=== PATIENT | male | born 1955 | race Caucasian/White ===

== ENCOUNTER → 2016-09-12 | Outpatient (CLI) | payer OTHER ==
[~2016-09-12] MED LIST: ADVAIR 5001 DISK W/D; ALBUTEROL17 GM; AMIODARONE; CARDIZEM CD; COMBIVENT INH14.7 GM; DILANTIN-1100 MG/4 M; IBUPROFEN PO; IMDUR; LASIX; NASONEX17 GM; VICODIN 5/500 T1 TAB PO; [UNRECOGNIZED DRUG - REMARK]
--- NOTE | ~2016-09-12 | CR181 ---
[facility] A Service of [facility] RADIOLOGY TEXT RESULTS PATIENT: VENESSA LIVINGSTON LOCATION: [facility] : 53 UNIT #: [id number] AGE: [address]: Wendi Young APRN SEX: M ORDER DR: [id number] [facility] [address] [place], [place] [address] [id number] O MR#: [id number] Acc #: [id number] NAME: VENESSA LIVINGSTON. : 1955 SEX: M STUDY DATE/TIME: 09/12/2016 18:33 UNIT: [facility] ROOM: STUDY DESCRIPTION: CR Lumbar Spine 2 or 3 Views Attending Physician: Wendi Young Aprn Referring Physician: Wendi Young Aprn Ordering Physician: Wendi Young Aprn Primary Care Physician: No Primary Care Physician MEDICAL IMAGING REPORT This report is preliminary unless electronic signature is present EXAM Lumbar spine, 3 views. INDICATIONS Low back pain for 20 years. COMPARISON Comparison is made with CT of the abdomen and pelvis from 04/30/2015. FINDINGS Vertebral body heights and alignment and disc spaces are maintained. On flexion/extension views, there is no evidence for dynamic instability. There is mild facet arthropathy of the lower lumbar spine. Vascular calcifications with stable ectasia of the infrarenal abdominal aorta. IMPRESSION 1. No dynamic instability. 2. 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 Dictated by... Cipriano Desai M.D. THIS IS AN ELECTRONICALLY VERIFIED REPORT Cipriano Desai M.D. at 09/14/2016 9:04 AM IVAN/sol TD: 09/13/2016 23:54 JOB #: [id number] MEDICAL IMAGING REPORT Page 1 of 1 COPY
== END | disposition home or self-care (01) ==
LOC: CRAD 17:34
DX: M51.36 Other intervertebral disc degeneration, lumbar region (principal); I77.811 Abdominal aortic ectasia
CPT/HCPCS: 72100